=== PATIENT | female | born 1945 | race Caucasian/White ===

== ENCOUNTER → 2016-07-10 | Outpatient (CLI) | payer MEDICARE, BC ==
--- NOTE | 2016-07-10 17:56 | RADRPT ---
PROCEDURE: XR Knees. CLINICAL INDICATION: Bilateral knee pain. TECHNIQUE: Total of eight views. Weightbearing frontal, oblique, and lateral views of the both kn ees. Patellar views of both knees. COMPARISON: No prior study is available for comparison. FINDINGS: There is no fracture or dislocation. The soft tissues are normal. There are degenerative changes with osteophytes arising from all 3 joint compartment margins bilater ally. There is bilateral medial joint compartment narrowing, subarticular sclerosis, and mild defor mity. There is no lytic or blastic lesion. There is no radiopaque foreign body. IMPRESSION: 1. Moderate to severe degenerative changes of both knees. 2. No acute abnormality. RPTAT: QQ .Raza Gomes MD, MD Date Time Electronically viewed and signed by .Raza Gomes MD, MD on 07/10/2016 17:56 .R/
== END | disposition home or self-care (01) ==
LOC: HKI 11:16
PROVIDERS: ATTEND Orthopaedic Surgery
DX: M25.561 Pain in right knee (principal); M25.562 Pain in left knee; M17.0 Bilateral primary osteoarthritis of knee
CPT/HCPCS: 73564; G0463

== ENCOUNTER → 2016-08-12 | Outpatient (CLI) | payer MEDICARE, BC ==
--- NOTE | 2016-08-12 15:21 | RADRPT ---
PROCEDURE: Limited x-ray of both lower extremities. CLINICAL INDICATION: Bilateral leg pain. TECHNIQUE: Single frontal view of both lower extremities was obtained from the hips to the calves. COMPARISON: None. FINDINGS: The hips are not well seen due to overlying soft tissues. There is no gross fracture or dislocation . There are degenerative changes of both knees with bilateral medial joint compartment narrowing and o steophytes. IMPRESSION: 1. Moderate degenerative changes of both knees. RPTAT: QQ .Raza Gomes MD, MD Date Time Electronically viewed and signed by .Raza Gomes MD, MD on 08/12/2016 15:20 .R/
== END | disposition home or self-care (01) ==
LOC: HKI 10:24
PROVIDERS: ATTEND Orthopaedic Surgery
DX: M25.561 Pain in right knee (principal); M25.562 Pain in left knee; M17.0 Bilateral primary osteoarthritis of knee
CPT/HCPCS: 77073; G0463

== ENCOUNTER 2016-08-20 06:20 | Inpatient (IN) | payer MEDICARE, BC ==
[2016-08-20] VITALS (29 sets, daily range): BP systolic 100–152; BP diastolic 53–85; PULSE 62–75; RESP 16–29; Ht 162.6 cm; Wt 95.8 kg
[~2016-08-20] VITALS: Ht 162.6 cm; Wt 95.8 kg
[~2016-08-20 06:20] MED LIST: BUPIVACAINE LIPOSOME/PF 266 MG/20 ML VIAL INFIL ONE; CEFAZOLIN 2GM/50 ML (PMX) 50 ML X1 BEFORE INCISION IVPB ONE; CELECOXIB 400 MG PO X1 DOSE PO ONE; LACTATED RINGER'S 1,000 ML IV SCH; PAIN COCKTAIL-CEFUROXIME IRR ONE; PREGABALIN 300 MG PO X1 PO ONE; SOD CHLORIDE 0.9% IV ONE; TRANEXAMIC ACID IV ONE; oxyCODONE (CR) 10 MG TAB [oxyCONTIN] X1 DOSE PO ONE; traMADOL 50 MG TAB X 1 DOSE PO ONE
[2016-08-20] MEDS ORDERED: EXPAREL NOTE (BUPIVICAINE LIPOSOMAL) XX SCH (09:30)
[2016-08-20] MEDS ORDERED: MULT-371 PO (09:34)
[2016-08-20] MEDS ORDERED: FLUT16SP17 NASAL (09:35)
[2016-08-20] MEDS ORDERED: ALBU8.5H3 INH (09:37)
[2016-08-20] MEDS ORDERED: OMEP10CA4 PO (09:37)
[2016-08-20] MEDS ORDERED: PRAV40TA76 PO (09:37)
[2016-08-20] MEDS ORDERED: NIT4 SL (09:39)
[2016-08-20] MEDS ORDERED: LORA0.5T PO (09:40)
[2016-08-20] MEDS ORDERED: BUPR300T36 PO (09:41)
[2016-08-20] MEDS ORDERED: LEVO50TA71 PO (09:42)
[2016-08-20] MEDS ORDERED: ESCI20TA PO (09:42)
[2016-08-20] MEDS ORDERED: CHLO25TA13 PO (09:44)
[2016-08-20] MEDS ORDERED: HYDR-906 PO (09:44)
[2016-08-20] MEDS ORDERED: LIDO700A6 TP (09:46)
[2016-08-20] MEDS ORDERED: VANCOMYCIN 1 GM INJ ONE (10:55)
[2016-08-20] MEDS ORDERED: POLYMYXIN B 500000 UNIT INJ ONE (10:55)
[2016-08-20] MEDS ORDERED: METOCLOPRAMIDE 10 MG INJ ONE (11:10)
[2016-08-20] MEDS ORDERED: MIDAZOLAM 1 MG/ML 2 ML INJ ONE (11:10)
[2016-08-20] MEDS ORDERED: PROPOFOL 100 ML ONE (11:10)
[2016-08-20] MEDS ORDERED: FENTAnyl 50 MCG/ML VIAL ONE (11:10)
--- NOTE | 2016-08-20 11:13 | HPN ---
Date/Time of Note Date/Time of Note DATE: 08/20/16 TIME: 11:12 Interval H&P Admission Note Pt. seen H&P reviewed: No system changes No change from H&P by Dr. Aguilar Prescott on 08/13/16 ADITYA COLBERT MD August 20, 2016 11:12
[2016-08-20] MEDS ORDERED: EPINEPHrine 0.1 MG/ML SYG ONE (11:22)
[2016-08-20] MEDS ORDERED: ETOMIDATE 20 MG INJ ONE (11:25)
[2016-08-20] MEDS ORDERED: CEFAZOLIN 1 GM INJ ONE (11:26)
[2016-08-20] MEDS ORDERED: DEXAMETHASONE 4 MG/ML 1 ML INJ ONE ×2 (11:26)
[2016-08-20] MEDS ORDERED: MEPERIDINE 25 MG INJ IV PRN (12:00)
[2016-08-20] MEDS ORDERED: HYDROmorphONE (0.2 MG/ML) 10ML SYG IV PRN ×3 (12:00)
[2016-08-20] MEDS ORDERED: ONDANSETRON 4 MG INJ IV PRN ×2 (12:00→14:00)
[2016-08-20] MEDS ORDERED: DIPHENHYDRAMINE 50 MG INJ IV PRN (12:00)
[2016-08-20] MEDS ORDERED: METOCLOPRAMIDE 10 MG INJ IV PRN (12:00)
[2016-08-20] MEDS ORDERED: BACITRACIN 50000 UNITS INJ IRR ONE (12:07)
[2016-08-20] MEDS: TRANEXAMIC ACID 950 MG in SOD CHLORIDE 0.9% 100 ML IVPB ONE ×3 (12:47)
--- NOTE | 2016-08-20 13:37 | OPR ---
Date/Time of Note Date/Time of Note DATE: 08/20/16 TIME: 13:35 Operative Report Free Text/Dictation Dictation # [id number] Procedure Date: August 20, 2016 Preoperative Diagnosis Right Knee OA Postoperative Diagnosis Same Operation Performed Right TKA Surgeon: ADITYA COLBERT MD doctor assistant: FAM ORTA PA-C Anesthesia: general Anesthesiologist: LUZMARIA RINCON MD Tourniquet Time: 58 minutes Estimated Blood Loss: 10 - 50 ml's Specimens Bone and soft tissue Tubes/Drains Hemovac x 1 Complications: None Pt Condition Post Procedure: stable Disposition: PACU ADITYA COLBERT MD August 20, 2016 13:37
--- NOTE | 2016-08-20 13:45 | PN ---
Date/Time of Note Date/Time of Note DATE: 08/20/16 TIME: 13:43 Assessment/Plan Lines/Catheters IV Catheter Type (from Nrsg): Peripheral IV Assessment/Plan Assessment/Plan Stable in PACU, s/p right TKA -continue abx -pain meds prn -ASA/SCDs for DVT prophylaxis -OOB with PT -check AM labs -monitor drain -d/c garay in AM XR of the right knee is pending at this time Subjective 24 Hr Interval Summary Stable in PACU. Moving all extremities. Denies pain. Exam/Review of Systems Vital Signs Vitals Vital Signs Date Time Temp Pulse Resp B/P Pulse Ox O2 Delivery O2 Flow Rate FiO2 08/20/16 09:42 97.6 67 18 115/66 97 Room Air Intake and Output 08/19/16 08/19/16 08/20/16 15:00 23:00 07:00 Intake Total 109.5 ml Balance 109.5 ml Exam Free Text/Dictation Hemovac: minimal Dressing dry Incision clean, dry, and intact without redness or drainage Thigh soft 5/5 Quadriceps, Tibialis Anterior, EHL, Gastroc, Soleus, Peroneals Normal sensation Palpable DT/PT, CR <2 sec No distal edema FAM ORTA PA-C August 20, 2016 13:45
--- NOTE | 2016-08-20 13:52 | OPR ---
DATE OF OPERATION: 08/20/2016 PREOPERATIVE DIAGNOSIS: Right knee osteoarthritis. POSTOPERATIVE DIAGNOSIS: Right knee osteoarthritis. OPERATION PERFORMED: Right total knee arthroplasty. SURGEON: Aditya Rodriguez MD VALVE LINER RUBBER: RHINA Robles COMPONENTS USED: DePuy Attune size 5 femoral component, size 5 tibial base plate, 5 mm polyethylene insert, 38 patellar button. ANESTHESIA: Spinal plus general endotracheal intubation, plus periarticular injection. ANESTHESIOLOGIST: Dr. Gallagher TOURNIQUET TIME: 58 minutes. ESTIMATED BLOOD LOSS: 50 mL INTRAVENOUS FLUIDS: 1700 mL of crystalloid SPECIMENS: Bone and soft tissue. DRAINS: Hemovac x1. COMPLICATIONS: None. DISPOSITION: The patient tolerated the procedure well and was taken to the recovery room in stable condition. INDICATIONS: The patient is 70-year-old woman who has had progressive worsening pain in the right knee with radiographic evidence of severe osteoarthritis. She has failed nonsurgical means of treatment to control her pain, including activity modifications, pain medications, intra-articular injections and ambulatory assist devices. Despite these measures, she has had worsening pain and I felt she would benefit from a total knee arthroplasty. I felt the patient would benefit from a total knee arthroplasty. The risks, benefits, and alternatives of the procedure were explained in detail to the patient. I explained the risks of the surgery to include but not be limited to, bleeding and possible need for blood transfusion; infection; pain; stiffness; neurovascular injury with possible numbness, weakness, and/or paralysis anywhere from the knee down to the toes; fracture; instability; dislocation; wear and/or loosening of the prosthesis and possible need for future revision; blood clots; pulmonary embolism; and anesthetic complications such as heart attack, stroke, GI bleed, pneumonia, and/or . Ample time was allowed for the patient to ask questions, all of which were addressed and answered. The patient understood the risks involved and wished to proceed. Informed consent was signed prior to the procedure. PROCEDURE: The patient's right knee was initialed with a marking pen in the preoperative area to identify the correct operative site. The patient was brought to the operating room and transferred from the [facility] to the operating table where a spinal anesthetic was administered. The patient was then anesthetized and intubated. A German catheter was placed. A timeout was performed to confirm that the right leg was the correct operative site. The patient was given 2 g of Ancef within one hour prior to the procedure. A tourniquet was placed on the operative proximal thigh. The operative knee and lower extremity were prepped and draped in the usual sterile fashion. The operative lower extremity was elevated and exsanguinated with an Esmarch tourniquet. The proximal thigh tourniquet was inflated to 300 mmHg. The knee was flexed. A midline incision was made and carried down through the subcutaneous tissue and fat with sharp dissection. Limited medial and lateral flaps were raised. A median parapatellar arthrotomy approach was performed. Synovial fluid was normal in color and consistency. The patella was everted and the knee flexed. There were severe tricompartmental osteoarthritic changes noted. A medial release was performed at the joint line to the midcoronal plane. The ACL and PCL and remnants of the menisci were excised. The OrthAlign navigation device was then pinned into place on the distal femur and set to 0 degrees of varus/valgus and 3 degrees of flexion. The distal cutting block was pinned into place and the oscillating saw was used to make the cut. The tibia was subluxed anteriorly. The tibial OrthAlign navigation device was then pinned into place such that the proximal portion of the guide was centered over the junction of the medial and middle third of the tibial tubercle with the proximal probe placed at the posterior aspect of the ACL footprint. The guide was then set to 0 degrees varus/valgus and 3 degrees of posterior slope. The cutting block was then pinned into place and the oscillating saw was used to make the cut. The tibia was sized. The extension gap was checked and accommodated a 5 mm spacer block with the knee in full extension. There was no varus or valgus instability. At this point, the femur was sized with the posterior referencing guide. Two holes were drilled in 3 degrees of external rotation. The two holes were in line with the transepicondylar axis, perpendicular to Jaja's line, and in line with the tibial cutoff jig brought up with the knee flexed 90 degrees and tensed with 2 lamina spreaders, suggesting the femoral rotation was correct. The four-in-one cutting block was pinned into place. The anterior and posterior cuts and chamfer cuts were made with the oscillating saw. The flexion gap was checked and accommodated the 5 mm spacer block at 90 degrees. There was no varus or valgus instability, suggesting the flexion and extension gaps were now equal. The central box was cut out on the femur. The tibia was drilled and punched in proper rotation. Trial components were placed into position with a trial insert. The patella was cut from 24 mm down to 15 mm and sized. Three holes were drilled and the trial button placed in position. With all the trials now in place, the knee was taken through range of motion and came to full extension as evidenced by the fact that with the foot on my abdomen and axial loading, there was no tendency for the knee to flex. The knee was able to be flexed to 125 degrees with good patellar tracking with no lateral tilt or subluxation. At this point, I was satisfied with the overall range of motion, stability, and patellar tracking. The trials were removed. The real components were opened. Two bags of cement were mixed, one with and one without premixed antibiotic. The knee was irrigated with antibiotic saline and sucked dry. Once the cement was in a doughy stage, the real components were cemented into place. The knee was held in full extension, and the patellar component was held with a patellar clamp. All excess cement was removed with curettes. As the cement was hardening, the synovial/capsular layer was infiltrated with a mixture of 150 mg of 0.5% Bupivacaine, 8 mg of Duramorph, 300 mcg of epinephrine, 30 mg of Toradol, 100 mcg of clonidine, 750 mg of cefuroxime and 86 mL of normal saline, followed by an injection of 266 mg of liposomal Bupivacaine. A Hemovac drain was placed in the deep portion of the wound and brought out the anterolateral thigh. Once the cement was completely hardened, the trial liner was removed, and the real insert was opened. The tourniquet was let down, and there was good hemostasis. The knee was then irrigated with a mixture of betadine/saline and then antibiotic saline with pulsatile lavage. The real insert was impacted into the tibia and reduced onto to the femur. The arthrotomy was closed with a few interrupted #1 Ethibond in a figure-of- eight fashion, and then closed in a watertight fashion with a running #2 Stratafix suture. Knee flexion was checked against gravity and came to 125 degrees. The subcutaneous layer was irrigated and closed with 2-0 Stratafix, and then 3-0 Vicryl and then rodney on the skin. The wound was covered with an occlusive dressing, and secured with cast padding and a bias dressing. The drain was secured with 3-0 nylon. The sponge and needle counts were correct at the end of the case. The patient was then awakened, extubated, and taken to the recovery room in stable condition. Dictated By: ADITYA MÁRQUEZ/JORGITO Conf#: [id number] DID#: [id number] MTDD
[2016-08-20 13:59] LABS: HEMATOCRIT 39.1 % (37.0-47.0); HEMOGLOBIN 13.1 g/dl (12.0-16.0)
[2016-08-20] MEDS ORDERED: BISACODYL 10 MG SUPP PR PRN (14:00)
[2016-08-20] MEDS ORDERED: DIPHENHYDRAMINE 25 MG CAP PO PRN (14:00)
[2016-08-20] MEDS ORDERED: MAGNESIUM HYDROXIDE 30ML CUP PO PRN (14:00)
[2016-08-20] MEDS ORDERED: NA PHOSPHATE/BIPHOS 133 ML ENEMA PR PRN (14:00)
[2016-08-20] MEDS ORDERED: NACL 0.9% 3 ML SYG IV SCH (14:00)
[2016-08-20] MEDS ORDERED: ALBUTEROL HFA 8 GM INHALER INH PRN (14:00)
[2016-08-20] MEDS ORDERED: CEFAZOLIN 2 GM/50 ML (PMX) 50 ML IVPB SCH (14:00)
[2016-08-20] MEDS ORDERED: ASPIRIN (EC) 325 MG TAB PO ONE (14:00)
--- NOTE | 2016-08-20 14:27 | RADRPT ---
PROCEDURE: Right knee radiographs. CLINICAL INDICATION: Right knee pain. Postop. TECHNIQUE: Two views. Frontal and lateral. COMPARISON: 08/19/2016. FINDINGS: There is no fracture or dislocation. Anterior skin rodney and surgical drain are noted. There is gas in the soft tissues from the recen t surgery. There is a total right knee arthroplasty which appears satisfactory. There is no lytic or blastic lesion. There is no joint effusion. IMPRESSION: 1. Satisfactory postoperative appearance of the right knee. RPTAT: QQ .Raza Gomes MD, MD Date Time Electronically viewed and signed by .Raza Gomes MD, MD on 08/20/2016 14:26 .R/
[2016-08-20] MEDS: LACTATED RINGER'S 1,000 ML IV SCH ×2 (14:28→22:15)
[2016-08-20 14:30] LABS: CREATININE 0.74 mg/dl (0.44-1.00); POTASSIUM 4.6 mmol/L (3.5-5.1)
[2016-08-20] MEDS ORDERED: BACITRACIN 50000 UNITS INJ ONE (15:01)
[2016-08-20] MEDS: HYDROmorphONE 1 MG/ML SYG IV PRN (16:07)
[2016-08-20] MEDS ORDERED: TRANEXAMIC ACID 960 MG in SOD CHLORIDE 0.9% 100 ML IVPB ONE ×2 (17:00→20:00)
[2016-08-20] MEDS ORDERED: PANTOPRAZOLE (EC) 40 MG TAB PO SCH (18:00)
[2016-08-20] MEDS: traMADol 50 MG TAB PO SCH (18:00)
[2016-08-20] MEDS: HYDROCODONE/APAP (5/325) TAB PO PRN (18:44)
[2016-08-20] MEDS: DOCUSATE SODIUM 100 MG CAP PO SCH (20:45)
[2016-08-20] MEDS: PREGABALIN 50 MG CAP PO SCH (20:45)
[2016-08-20] MEDS: ATORVASTATIN 10 MG TAB PO SCH (20:45)
[2016-08-20] MEDS: CEFAZOLIN 2 GM/50 ML (PMX) 50 ML IVPB SCH (22:12)
[2016-08-21] MEDS: HYDROCODONE/APAP (5/325) TAB PO PRN ×5 (02:35→22:11)
[2016-08-21 05:17] LABS: HEMATOCRIT 35.2 % (37.0-47.0); HEMOGLOBIN 11.8 g/dl (12.0-16.0)
[2016-08-21 05:21] LABS: POTASSIUM 3.6 mmol/L (3.5-5.1)
[2016-08-21 05:24] LABS: CALCIUM 8.5 mg/dl (8.4-10.2); CREATININE 0.61 mg/dl (0.44-1.00)
[2016-08-21] MEDS: PANTOPRAZOLE (EC) 40 MG TAB PO SCH (06:27)
[2016-08-21] MEDS: traMADol 50 MG TAB PO SCH ×5 (06:27→23:48)
[2016-08-21] MEDS: LEVOTHYROXINE 50 MCG TAB PO SCH (06:27)
[2016-08-21] MEDS: CEFAZOLIN 2 GM/50 ML (PMX) 50 ML IVPB SCH ×2 (06:27→14:18)
[2016-08-21 06:38] LABS: ADD UMIC YES; URINE BILIRUBIN (Dip) NEGATIVE (NEGATIVE); URINE BLOOD (Dip) TRACE (NEGATIVE); URINE COLOR LT. YELLOW (YELLOW); URINE GLUCOSE (Dip) NEGATIVE (NEGATIVE); URINE KETONES (Dip) NEGATIVE (NEGATIVE); URINE LEUKOCYTE ESTERASE (Dip) NEGATIVE (NEGATIVE); URINE NITRITE (Dip) NEGATIVE (NEGATIVE); URINE TOTAL PROTEIN (Dip) NEGATIVE (NEGATIVE); URINE UROBILINOGEN (Dip) 0.2 E.U./dL (0.1-1.0)
[2016-08-21] MEDS: LACTATED RINGER'S 1,000 ML IV SCH ×4 (06:43→22:25)
[2016-08-21 07:00] VITALS: BP 116/57; RESP 18
[2016-08-21 07:02] LABS: URINE RBCS 0-2 /HPF (0)
--- NOTE | 2016-08-21 07:05 | CONS ---
DATE OF ADMISSION: 08/20/2016 DATE OF CONSULTATION: 08/20/2016 TYPE OF CONSULTATION: Postoperative medical consultation. Thank you very much for allowing me to evaluate this 70-year-old female who just underwent right tot al knee replacement. HISTORICAL EVENTS: As you well know, this patient has had progressive disabling pain involving her right knee, and for this elected to proceed with surgery. In recovery, she is comfortable without c ough, wheezing, shortness of breath, nausea, vomiting, abdominal or chest pain. PAST MEDICAL HISTORY: Includes: 1. Depression and anxiety. 2. Hyperlipidemia. 3. Hypertension. 4. Hypothyroidism. 5. History of prediabetes. 6. History of a partial colectomy. PERSONAL HISTORY: Social drinker, former smoker, , homemaker. FAMILY HISTORY: Positive for alcoholism and lung cancer. MEDICATIONS: 1. Multivitamins. 2. Fluticasone spray one inhalation b.i.d. as needed. 3. ProAir 2 puffs q.i.d. as needed. 4. Omeprazole 20. 5. Pravastatin 40 mg per day. 6. Lorazepam 0.5 b.i.d. p.r.n. 7. Levothyroxine 50 mcg per day. ALLERGIES: NIACIN. PHYSICAL EXAMINATION: GENERAL: [place] female in no acute distress. VITAL SIGNS: BP 118/78, respirations were 18. She was afebrile. EYES: Extraocular muscles were full. NOSE, MOUTH, AND THROAT: Normal. NECK: Supple. There was no jugular venous distention, thyroid enlargement or adenopathy. Carotids 2+, no bruits. LUNGS: Clear. HEART: Rhythm regular. ABDOMEN: Nontender. Liver and spleen not palpable. EXTREMITIES: No edema. NEUROLOGIC: No lateralizing motor weakness. IMPRESSION: 1. Stable postop right knee. 2. History of hypertension. Blood pressure will be monitored throughout and preop meds resumed. 3. Hyperlipidemia. Statin will be continued. 4. Will follow daily for signs and symptoms of thromboembolic disease. Dictated By: YAN العلي/JORGITO Conf#: [id number] DID#: [id number]
--- NOTE | 2016-08-21 08:12 | CONS ---
Date/Time of Note Date/Time of Note DATE: 08/21/16 TIME: 08:10 Assessment/Plan Assessment/Plan Additional Assessment/Plan 1. Doing well post op right knee replacement 2. HBP, well controlled 3. Labs reviewed Consultation Date/Type/Reason Admit Date/Time August 20, 2016 at 08:44 Initial Consult Date Detailed Summary Respiratory: No cough, No shortness of breath Cardiovascular: No chest pain Gastrointestinal: no complaints Genitourinary: other (garay just removed) Musculoskeletal: bone/joint pain (mild right knee pain) Exam/Review of Systems Vital Signs Vitals Vital Signs Date Time Temp Pulse Resp B/P Pulse Ox O2 Delivery O2 Flow Rate FiO2 08/21/16 07:00 98.2 83 18 116/57 96 08/20/16 20:10 Nasal Cannula 2.0 Intake and Output 08/20/16 08/20/16 08/21/16 14:59 22:59 06:59 Intake Total 2109.5 ml 1313.6 ml 1622 ml Output Total 195 ml 100 ml 1200 ml Balance 1914.5 ml 1213.6 ml 422 ml Exam Neck: No jvd Respiratory: clear to auscultation Cardiovascular: regular rate and rhythm Gastrointestinal: soft Extremities: No edema (and no calf tend) Results Result Diagram: 08/21/16 0443 08/21/16 0443 Results 24 hrs Laboratory Tests Test 08/20/16 13:51 08/21/16 04:06 08/21/16 04:43 Hemoglobin 13.1 11.8 L Hematocrit 39.1 35.2 L Sodium Level 137 136 Potassium Level 4.6 3.6 Chloride Level 102 101 Carbon Dioxide Level 27 26 Anion Gap 13 13 Blood Urea Nitrogen 18 15 Creatinine 0.74 0.61 Glucose Level 138 124 Calcium Level 9.0 8.5 Urine Color LT. YELLOW Urine Clarity CLEAR Urine pH 6.0 Urine Specific [place] 1.010 Urine Ketones NEGATIVE Urine Nitrite NEGATIVE Urine Bilirubin NEGATIVE Urine Urobilinogen 0.2 E.U./dL Urine Leukocyte Esterase NEGATIVE Urine Microscopic RBC 0-2 Urine Microscopic WBC 0-2 Urine Hemoglobin TRACE Urine Glucose NEGATIVE Urine Total Protein NEGATIVE Medications Medications Current Medications Albuterol (Ventolin Hfa) 2 puff Q6H PRN INH WHEEZING AND SOB; Start 08/20/16 at 14:00 Bupropion HCl (Wellbutrin Xl) 300 mg DAILY PO ; Start 08/21/16 at 09:00 Chlorthalidone (Hygroton) 25 mg DAILY PO ; Start 08/21/16 at 09:00 Escitalopram Oxalate (Lexapro) 20 mg DAILY PO ; Start 08/21/16 at 09:00 Atorvastatin Calcium 10 mg 10 mg DAILY@21 PO Last administered on 08/20/16 20: 45; Admin Dose 10 MG; Start 08/20/16 at 21:00 Lactated Ringer's (Lr) 1,000 ml @ 125 mls/hr Q8H IV Last administered on 06:43; Admin Dose 125 MLS/HR; Start 08/20/16 at 13:36 Celecoxib (Celebrex) 200 mg DAILY PO ; Start 08/21/16 at 09:00 Tramadol HCl (Ultram) 50 mg Q6 PO Last administered on 08/21/16 06:27; Admin Dose 50 MG; Start 08/20/16 at 18:00; Stop 08/23/16 at 17:59 Acetaminophen/ Hydrocodone Bitart ([place] (5/325)) 1 tab Q4H PRN PO PAIN LEVEL 1 -3 Last administered on 08/21/16 02:35; Admin Dose 1 TAB; Start 08/20/16 at 14: 00 Acetaminophen/ Hydrocodone Bitart ([place] (5/325)) 2 tab Q4H PRN PO PAIN LEVEL 4 -7; Start 08/20/16 at 14:00 Hydromorphone HCl (Dilaudid) 1 mg Q3H PRN IV PAIN LEVEL 8-10 Last administered on 08/20/16 16:07; Admin Dose 1 MG; Start 08/20/16 at 14:00 Ondansetron HCl (Zofran Inj) 4 mg Q6H PRN IV NAUSEA AND/OR VOMITING; Start 08/20 at 14:00 Bisacodyl (Dulcolax Supp) 10 mg Q12H PRN [place] CONSTIPATION; Start 08/20/16 at 14: 00 Magnesium Hydroxide (Milk Of Mag) 30 ml BID PRN PO CONSTIPATION; Start 08/20/16 at 14:00 Sodium Biphosphate/ Sodium Phosphate (Fleet Enema) 133 ml DAILY PRN [place] CONSTIPATION; Start 08/20/16 at 14:00 Docusate Sodium (Colace) 100 mg BID PO Last administered on 08/20/16 20:45; Admin Dose 100 MG; Start 08/20/16 at 21:00 Diphenhydramine HCl (Benadryl) 25 mg Q6H PRN PO PRURITUS; Start 08/20/16 at 14: 00 Aspirin (Ecotrin) 325 mg BID PO ; Start 08/21/16 at 09:00 Pregabalin (Lyrica) 50 mg BID PO Last administered on 08/20/16 20:45; Admin Dose 50 MG; Start 08/20/16 at 21:00 Pantoprazole 40 mg 40 mg DAILY@06 PO Last administered on 08/21/16 06:27; Admin Dose 40 MG; Start 08/21/16 at 06:00 Cefazolin Sodium/ Dextrose (Ancef 2 Gm/50 ml (Pmx)) 50 ml @ 100 mls/hr Q8 IVPB Last administered on 08/21/16 06:27; Admin Dose 100 MLS/HR; Start 08/20/16 at 22:00; Stop 08/21/16 at 14:29 YAN MEDEIROS MD August 21, 2016 08:12
[2016-08-21] MEDS ORDERED: POTASSIUM CHLORIDE (SR) 10 MEQ TAB PO ONE (08:30)
--- NOTE | 2016-08-21 08:44 | PN ---
Date/Time of Note Date/Time of Note DATE: 08/21/16 TIME: 08:43 Assessment/Plan Lines/Catheters IV Catheter Type (from Nrsg): Peripheral IV German in Place (from Nrsg): No Assessment/Plan Assessment/Plan Stable POD #1, s/p right TKA -d/c abx -pain meds prn -ASA/SCDs -OOB with PT -drain removed -check AM labs -d/c planning. Will plan to go home upon discharge Subjective 24 Hr Interval Summary No acute overnight events. Denies any significant pain. Did not start PT yesterday. VSS, afebrile. Will plan to go home upon discharge. Exam/Review of Systems Vital Signs Vitals Vital Signs Date Time Temp Pulse Resp B/P Pulse Ox O2 Delivery O2 Flow Rate FiO2 08/21/16 07:00 98.2 83 18 116/57 96 08/20/16 20:10 Nasal Cannula 2.0 Intake and Output 08/20/16 08/20/16 08/21/16 15:00 23:00 07:00 Intake Total 2109.5 ml 1313.6 ml 1622 ml Output Total 195 ml 100 ml 1200 ml Balance 1914.5 ml 1213.6 ml 422 ml Exam Free Text/Dictation Hemovac: 200cc Dressing dry Incision clean, dry, and intact without redness or drainage Thigh soft 5/5 Quadriceps, Tibialis Anterior, EHL, Gastroc, Soleus, Peroneals Normal sensation Palpable DT/PT, CR <2 sec No distal edema Results Result Diagram: 08/21/163 08/21/16 044 FAM ORTA PA-C August 21, 2016 08:44
[2016-08-21] MEDS: CELECOXIB 200 MG CAP PO SCH (09:33)
[2016-08-21] MEDS: ESCITALOPRAM 10 MG TAB PO SCH (09:34)
[2016-08-21] MEDS: ASPIRIN (EC) 325 MG TAB PO SCH ×2 (09:34→20:15)
[2016-08-21] MEDS: PREGABALIN 50 MG CAP PO SCH ×2 (09:34→20:16)
[2016-08-21] MEDS: DOCUSATE SODIUM 100 MG CAP PO SCH ×2 (09:34→20:16)
[2016-08-21] MEDS: CHLORTHALIDONE 25 MG TAB PO SCH (09:35)
[2016-08-21] MEDS: BUPROPION (XL) 150 MG TAB PO SCH (09:36)
--- NOTE | 2016-08-21 14:12 | PN ---
Date/Time of Note Date/Time of Note DATE: 08/21/16 TIME: 14:10 Assessment/Plan VTE Prophylaxis VTE Prophylaxis Intervention: ambulation Lines/Catheters IV Catheter Type (from Nrsg): Peripheral IV Urinary Cath still in place: No Subjective 24 Hr Interval Summary Free Text/Dictation Anesthesia note: A 70 year female s/p TKA under GA and spinal POD # 1is doing well. pain is controlled, no n/v, headache, itching, back pain. v/s stable. Exam/Review of Systems Vital Signs Vitals Vital Signs Date Time Temp Pulse Resp B/P Pulse Ox O2 Delivery O2 Flow Rate FiO2 08/21/16 07:00 98.2 83 18 116/57 96 08/20/16 20:10 Nasal Cannula 2.0 Intake and Output 08/20/16 08/20/16 08/21/16 15:00 23:00 07:00 Intake Total 2109.5 ml 1313.6 ml 1622 ml Output Total 195 ml 100 ml 1200 ml Balance 1914.5 ml 1213.6 ml 422 ml Results Result Diagram: 08/21/16 0443 08/21/16 0443 Results 24 hrs Laboratory Tests Test 08/21/16 04:06 08/21/16 04:43 Urine Color LT. YELLOW Urine Clarity CLEAR Urine pH 6.0 Urine Specific [place] 1.010 Urine Ketones NEGATIVE Urine Nitrite NEGATIVE Urine Bilirubin NEGATIVE Urine Urobilinogen 0.2 E.U./dL Urine Leukocyte Esterase NEGATIVE Urine Microscopic RBC 0-2 Urine Microscopic WBC 0-2 Urine Hemoglobin TRACE Urine Glucose NEGATIVE Urine Total Protein NEGATIVE Hemoglobin 11.8 L Hematocrit 35.2 L Sodium Level 136 Potassium Level 3.6 Chloride Level 101 Carbon Dioxide Level 26 Anion Gap 13 Blood Urea Nitrogen 15 Creatinine 0.61 Glucose Level 124 Calcium Level 8.5 Medications Medications Current Medications Albuterol (Ventolin Hfa) 2 puff Q6H PRN INH WHEEZING AND SOB; Start 08/20/16 at 14:00 Bupropion HCl (Wellbutrin Xl) 300 mg DAILY PO Last administered on 08/21/16 09 :36; Admin Dose 300 MG; Start 08/21/16 at 09:00 Chlorthalidone (Hygroton) 25 mg DAILY PO Last administered on 08/21/16 09:35; Admin Dose 25 MG; Start 08/21/16 at 09:00 Escitalopram Oxalate (Lexapro) 20 mg DAILY PO Last administered on 08/21/16 09 :34; Admin Dose 20 MG; Start 08/21/16 at 09:00 Atorvastatin Calcium 10 mg 10 mg DAILY@21 PO Last administered on 08/20/16 20: 45; Admin Dose 10 MG; Start 08/20/16 at 21:00 Lactated Ringer's (Lr) 1,000 ml @ 125 mls/hr Q8H IV Last administered on 06:43; Admin Dose 125 MLS/HR; Start 08/20/16 at 13:36 Celecoxib (Celebrex) 200 mg DAILY PO Last administered on 08/21/16 09:33; Admin Dose 200 MG; Start 08/21/16 at 09:00 Tramadol HCl (Ultram) 50 mg Q6 PO Last administered on 08/21/16 12:41; Admin Dose 50 MG; Start 08/20/16 at 18:00; Stop 08/23/16 at 17:59 Acetaminophen/ Hydrocodone Bitart ([place] (5/325)) 1 tab Q4H PRN PO PAIN LEVEL 1 -3 Last administered on 08/21/16 09:38; Admin Dose 1 TAB; Start 08/20/16 at 14: 00 Acetaminophen/ Hydrocodone Bitart ([place] (5/325)) 2 tab Q4H PRN PO PAIN LEVEL 4 -7; Start 08/20/16 at 14:00 Hydromorphone HCl (Dilaudid) 1 mg Q3H PRN IV PAIN LEVEL 8-10 Last administered on 08/20/16 16:07; Admin Dose 1 MG; Start 08/20/16 at 14:00 Ondansetron HCl (Zofran Inj) 4 mg Q6H PRN IV NAUSEA AND/OR VOMITING; Start 08/20 at 14:00 Bisacodyl (Dulcolax Supp) 10 mg Q12H PRN [place] CONSTIPATION; Start 08/20/16 at 14: 00 Magnesium Hydroxide (Milk Of Mag) 30 ml BID PRN PO CONSTIPATION; Start 08/20/16 at 14:00 Sodium Biphosphate/ Sodium Phosphate (Fleet Enema) 133 ml DAILY PRN [place] CONSTIPATION; Start 08/20/16 at 14:00 Docusate Sodium (Colace) 100 mg BID PO Last administered on 08/21/16 09:34; Admin Dose 100 MG; Start 08/20/16 at 21:00 Diphenhydramine HCl (Benadryl) 25 mg Q6H PRN PO PRURITUS; Start 08/20/16 at 14: 00 Aspirin (Ecotrin) 325 mg BID PO Last administered on 08/21/16 09:34; Admin Dose 325 MG; Start 08/21/16 at 09:00 Pregabalin (Lyrica) 50 mg BID PO Last administered on 08/21/16 09:34; Admin Dose 50 MG; Start 08/20/16 at 21:00 Pantoprazole 40 mg 40 mg DAILY@06 PO Last administered on 08/21/16 06:27; Admin Dose 40 MG; Start 08/21/16 at 06:00 Cefazolin Sodium/ Dextrose (Ancef 2 Gm/50 ml (Pmx)) 50 ml @ 100 mls/hr Q8 IVPB Last administered on 08/21/16 06:27; Admin Dose 100 MLS/HR; Start 08/20/16 at 22:00; Stop 08/21/16 at 14:29 Lorazepam (Ativan) 0.5 mg HS PO ; Start 08/21/16 at 21:00 LUZMARIA RINCON MD August 21, 2016 14:12
[2016-08-21 19:00] VITALS: BP 106/55; RESP 19
[2016-08-21] MEDS: ATORVASTATIN 10 MG TAB PO SCH (20:16)
[2016-08-21] MEDS: LORAZEPAM 0.5 MG TAB PO SCH (20:16)
[2016-08-22] MEDS: HYDROCODONE/APAP (5/325) TAB PO PRN ×5 (04:30→22:40)
[2016-08-22 04:51] LABS: HEMATOCRIT 31.6 % (37.0-47.0); HEMOGLOBIN 10.5 g/dl (12.0-16.0)
[2016-08-22] MEDS: traMADol 50 MG TAB PO SCH ×4 (05:16→23:43)
[2016-08-22] MEDS: PANTOPRAZOLE (EC) 40 MG TAB PO SCH (05:16)
[2016-08-22 05:21] LABS: POTASSIUM 3.9 mmol/L (3.5-5.1)
[2016-08-22 05:23] LABS: CREATININE 0.78 mg/dl (0.44-1.00); MAGNESIUM 1.9 mg/dl (1.7-2.5); PHOSPHORUS 3.2 mg/dl (2.5-4.9)
[2016-08-22 05:24] LABS: CALCIUM 8.5 mg/dl (8.4-10.2)
[2016-08-22] MEDS: LEVOTHYROXINE 50 MCG TAB PO SCH (06:27)
[2016-08-22] MEDS: HYDROmorphONE 1 MG/ML SYG IV PRN (06:35)
--- NOTE | 2016-08-22 07:55 | CONS ---
Date/Time of Note Date/Time of Note DATE: 08/22/16 TIME: 07:54 Assessment/Plan Assessment/Plan Additional Assessment/Plan 1. Doing well post op right knee replacement 2. HBP, controlled 3. Anemia, stable Consultation Date/Type/Reason Admit Date/Time August 20, 2016 at 08:44 Detailed Summary Respiratory: No cough, No shortness of breath Cardiovascular: No chest pain Gastrointestinal: no complaints Genitourinary: no complaints Musculoskeletal: bone/joint pain (mod right knee pain) Exam/Review of Systems Vital Signs Vitals Vital Signs Date Time Temp Pulse Resp B/P Pulse Ox O2 Delivery O2 Flow Rate FiO2 08/21/16 19:00 98.0 69 19 106/55 94 08/20/16 20:10 Nasal Cannula 2.0 Intake and Output 08/21/16 08/21/16 08/22/16 15:00 23:00 07:00 Intake Total 50 ml 2400 ml 1670 ml Output Total 600 ml Balance 50 ml 1800 ml 1670 ml Exam Neck: No jvd Respiratory: clear to auscultation Cardiovascular: regular rate and rhythm Gastrointestinal: soft Extremities: No edema (and no calf tend bilat) Results Result Diagram: 08/22/16 0419 08/22/16 0419 Results 24 hrs Laboratory Tests Test 08/22/16 04:19 Hemoglobin 10.5 L Hematocrit 31.6 L Sodium Level 138 Potassium Level 3.9 Chloride Level 99 Carbon Dioxide Level 30 Anion Gap 13 Blood Urea Nitrogen 15 Creatinine 0.78 Glucose Level 96 Calcium Level 8.5 Phosphorus Level 3.2 Magnesium Level 1.9 Medications Medications Current Medications Albuterol (Ventolin Hfa) 2 puff Q6H PRN INH WHEEZING AND SOB; Start 08/20/16 at 14:00 Bupropion HCl (Wellbutrin Xl) 300 mg DAILY PO Last administered on 08/21/16 09 :36; Admin Dose 300 MG; Start 08/21/16 at 09:00 Chlorthalidone (Hygroton) 25 mg DAILY PO Last administered on 08/21/16 09:35; Admin Dose 25 MG; Start 08/21/16 at 09:00 Escitalopram Oxalate (Lexapro) 20 mg DAILY PO Last administered on 08/21/16 09 :34; Admin Dose 20 MG; Start 08/21/16 at 09:00 Atorvastatin Calcium 10 mg 10 mg DAILY@21 PO Last administered on 08/21/16 20: 16; Admin Dose 10 MG; Start 08/20/16 at 21:00 Lactated Ringer's (Lr) 1,000 ml @ 100 mls/hr Q10H IV Last administered on 08/21 20:17; Admin Dose 100 MLS/HR; Start 08/20/16 at 13:36 Celecoxib (Celebrex) 200 mg DAILY PO Last administered on 08/21/16 09:33; Admin Dose 200 MG; Start 08/21/16 at 09:00 Tramadol HCl (Ultram) 50 mg Q6 PO Last administered on 08/22/16 05:16; Admin Dose 50 MG; Start 08/20/16 at 18:00; Stop 08/23/16 at 17:59 Acetaminophen/ Hydrocodone Bitart ([place] (5/325)) 1 tab Q4H PRN PO PAIN LEVEL 1 -3 Last administered on 08/21/16 16:13; Admin Dose 1 TAB; Start 08/20/16 at 14: 00 Acetaminophen/ Hydrocodone Bitart ([place] (5/325)) 2 tab Q4H PRN PO PAIN LEVEL 4 -7 Last administered on 08/22/16 04:30; Admin Dose 2 TAB; Start 08/20/16 at 14: 00 Hydromorphone HCl (Dilaudid) 1 mg Q3H PRN IV PAIN LEVEL 8-10 Last administered on 08/22/16 06:35; Admin Dose 1 MG; Start 08/20/16 at 14:00 Ondansetron HCl (Zofran Inj) 4 mg Q6H PRN IV NAUSEA AND/OR VOMITING; Start 08/20 at 14:00 Bisacodyl (Dulcolax Supp) 10 mg Q12H PRN [place] CONSTIPATION; Start 08/20/16 at 14: 00 Magnesium Hydroxide (Milk Of Mag) 30 ml BID PRN PO CONSTIPATION; Start 08/20/16 at 14:00 Sodium Biphosphate/ Sodium Phosphate (Fleet Enema) 133 ml DAILY PRN [place] CONSTIPATION; Start 08/20/16 at 14:00 Docusate Sodium (Colace) 100 mg BID PO Last administered on 08/21/16 20:16; Admin Dose 100 MG; Start 08/20/16 at 21:00 Diphenhydramine HCl (Benadryl) 25 mg Q6H PRN PO PRURITUS; Start 08/20/16 at 14: 00 Aspirin (Ecotrin) 325 mg BID PO Last administered on 08/21/16 20:15; Admin Dose 325 MG; Start 08/21/16 at 09:00 Pregabalin (Lyrica) 50 mg BID PO Last administered on 08/21/16 20:16; Admin Dose 50 MG; Start 08/20/16 at 21:00 Pantoprazole (Protonix Tab) 40 mg DAILY@06 PO Last administered on 08/22/16 05 :16; Admin Dose 40 MG; Start 08/21/16 at 06:00 Lorazepam (Ativan) 0.5 mg HS PO Last administered on 08/21/16 20:16; Admin Dose 0.5 MG; Start 08/21/16 at 21:00 YAN MEDEIROS MD August 22, 2016 07:55
[2016-08-22 08:07] VITALS: BP 111/56; RESP 19
[2016-08-22] MEDS: LACTATED RINGER'S 1,000 ML IV SCH ×2 (08:25→18:00)
[2016-08-22] MEDS: PREGABALIN 50 MG CAP PO SCH ×2 (09:05→20:29)
[2016-08-22] MEDS: CELECOXIB 200 MG CAP PO SCH (09:05)
[2016-08-22] MEDS: ASPIRIN (EC) 325 MG TAB PO SCH ×2 (09:05→20:29)
[2016-08-22] MEDS: DOCUSATE SODIUM 100 MG CAP PO SCH ×2 (09:05→20:29)
[2016-08-22] MEDS: CHLORTHALIDONE 25 MG TAB PO SCH (09:06)
[2016-08-22] MEDS: ESCITALOPRAM 10 MG TAB PO SCH (09:07)
[2016-08-22] MEDS: BUPROPION (XL) 150 MG TAB PO SCH (09:07)
--- NOTE | 2016-08-22 09:44 | PDOCDIS ---
Discharge Instructions DIAGNOSIS Discharge Diagnosis: s/p right TKA CONDITION Patient Condition: Good HOME CARE INSTRUCTIONS: Diet Instructions: Regular ACTIVITY: Activity Restrictions: Slowly Increase Activity Rest between Activity Avoid heavy lifting Do not operate Machinery Do not operate Power Tool Avoid Heavy Housework Keep Limb Elevated Bathing Restrictions: Shower FOLLOW UP/APPOINTMENTS Appointments follow up on 08/30/16 OTHER ORDERS: Other Orders: S/P TKA Physical Therapy: Three times per week at home x 2 weeks Daily in Rehab/SNF WB STATUS: WBAT 1. Strengthening exercises for both upper and un-operated lower extremities. 2. Gait training with front wheeled walker 3. Active range of motion exercises to operative knee. 4. When not working on knee range of motion exercises, distal towel roll under operative ankle/distal calf to promote full extension. 5. DO NOT PUT ANYTHING BEHIND OPERATIVE KNEE!!! 6. Quadriceps and hamstring strengthening. 7. May switch to cane in contra lateral hand 6 weeks after surgery. 8. Physical Therapy can open case if nursing is not available. 9. Use Ice Machine as instructed from date of surgery while at rest 3X/day. 10. Patient requires mobile SCDs to reduce risk of developing DVT following TKA. Patient will use the mobile SCDs for 30 days postoperatively. Bathing assistance by home health aide twice weekly if Medicare patient. Occupational Therapy: Evaluation for assistive devices and ADL training. Wound Care: Keep incision dry & covered with Tegaderm until first visit with Dr. Rodriguez Anticoagulation Orders: Enteric Coated Aspirin 325 mg po bid x 6 weeks from date of surgery Follow-up:Call for an appointment with Dr. Rodriguez in 1 week after discharged from hospital at DME Orders: ANU, 3-in-1 Commode, Polar ice machine, Mobile SCDs FAM ORTA PA-C August 22, 2016 09:44
[2016-08-22] MEDS ORDERED: ASPI325T32 PO (09:46)
[2016-08-22] MEDS ORDERED: HYDR-905 PO (09:46)
[2016-08-22] MEDS ORDERED: PREG50CA PO (09:46)
[2016-08-22] MEDS ORDERED: TRAM50TA2 PO (09:46)
--- NOTE | 2016-08-22 15:55 | PN ---
Date/Time of Note Date/Time of Note DATE: 08/22/16 TIME: 15:52 Assessment/Plan Lines/Catheters IV Catheter Type (from Nrsg): Peripheral IV German in Place (from Nrsg): No Assessment/Plan Assessment/Plan POD #2, s/p right TKA -pain meds as needed -ASA/SCDs for DVT prophylaxis -dressing changed -OOB with PT -check AM labs -will likely discharge home tomrrow Subjective 24 Hr Interval Summary No acute overnight events. Having slightly more pain today. Progessing well with PT. VSS, afebrile. Will plan to discharge home tomorrow. Exam/Review of Systems Vital Signs Vitals Vital Signs Date Time Temp Pulse Resp B/P Pulse Ox O2 Delivery O2 Flow Rate FiO2 08/22/16 08:07 98.0 61 19 111/56 98 08/20/16 20:10 Nasal Cannula 2.0 Intake and Output 08/21/16 08/21/16 08/22/16 15:00 23:00 07:00 Intake Total 50 ml 2400 ml 1670 ml Output Total 600 ml Balance 50 ml 1800 ml 1670 ml Exam Free Text/Dictation Dressing dry Incision clean, dry, and intact without redness or drainage Thigh soft / Quadriceps, Tibialis Anterior, EHL, Gastroc, Soleus, Peroneals Normal sensation Palpable DT/PT, CR <2 sec No distal edema Results Result Diagram: 08/22/16 0419 08/22/16 0419 FAM ORTA PA-C August 22, 2016 15:55
[2016-08-22 19:43] VITALS: BP 139/61; RESP 20
[2016-08-22] MEDS: LORAZEPAM 0.5 MG TAB PO SCH (20:29)
[2016-08-22] MEDS: ATORVASTATIN 10 MG TAB PO SCH (20:29)
[2016-08-23] MEDS: HYDROmorphONE 1 MG/ML SYG IV PRN (02:13)
[2016-08-23] MEDS: LACTATED RINGER'S 1,000 ML IV SCH (04:25)
[2016-08-23 05:07] LABS: HEMATOCRIT 32.7 % (37.0-47.0); HEMOGLOBIN 10.7 g/dl (12.0-16.0)
[2016-08-23 05:34] LABS: CALCIUM 8.5 mg/dl (8.4-10.2); CREATININE 0.72 mg/dl (0.44-1.00); POTASSIUM 4.2 mmol/L (3.5-5.1)
[2016-08-23] MEDS: PANTOPRAZOLE (EC) 40 MG TAB PO SCH (06:05)
[2016-08-23] MEDS: traMADol 50 MG TAB PO SCH ×2 (06:06→12:12)
[2016-08-23] MEDS: LEVOTHYROXINE 50 MCG TAB PO SCH (06:06)
--- NOTE | 2016-08-23 08:01 | PN ---
Date/Time of Note Date/Time of Note DATE: 08/23/16 TIME: 08:00 Assessment/Plan Lines/Catheters IV Catheter Type (from Nrsg): Peripheral IV German in Place (from Nrsg): No Assessment/Plan Assessment/Plan POD #3, s/p right TKA -pain meds as needed -ASA/SCDs for DVT prophylaxis -OOB with PT -dressing changed -d/c home today -follow up in the office in 1 week Subjective 24 Hr Interval Summary No acute overnight events. Pain improved since yesterday. Progressing nicely with PT. VSS, afebrile. Stable for discharge home today. Exam/Review of Systems Vital Signs Vitals Vital Signs Date Time Temp Pulse Resp B/P Pulse Ox O2 Delivery O2 Flow Rate FiO2 08/22/16 19:43 98.8 75 20 139/61 98 08/20/16 20:10 Nasal Cannula 2.0 Intake and Output 08/22/16 08/22/16 08/23/16 15:00 23:00 07:00 Intake Total 600 ml 700 ml Balance 600 ml 700 ml Exam Free Text/Dictation Dressing dry Incision clean, dry, and intact without redness or drainage 08/16 Quadriceps, Tibialis Anterior, EHL, Gastroc, Soleus, Peroneals Normal sensation Palpable DT/PT, CR <2 sec No distal edema Results Result Diagram: 08/23/16 0435 08/23/16 0435 FAM ORTA PA-C August 23, 2016 08:01
[2016-08-23 08:02] VITALS: BP 122/59; RESP 19
[2016-08-23] MEDS: CELECOXIB 200 MG CAP PO SCH (08:27)
[2016-08-23] MEDS: ASPIRIN (EC) 325 MG TAB PO SCH (08:27)
[2016-08-23] MEDS: DOCUSATE SODIUM 100 MG CAP PO SCH (08:27)
[2016-08-23] MEDS: BUPROPION (XL) 150 MG TAB PO SCH (08:27)
[2016-08-23] MEDS: CHLORTHALIDONE 25 MG TAB PO SCH (08:27)
[2016-08-23] MEDS: ESCITALOPRAM 10 MG TAB PO SCH (08:27)
[2016-08-23] MEDS: HYDROCODONE/APAP (5/325) TAB PO PRN ×2 (08:28→12:46)
--- NOTE | 2016-08-23 08:57 | CONS ---
Date/Time of Note Date/Time of Note DATE: 08/23/16 TIME: 08:56 Assessment/Plan Assessment/Plan Additional Assessment/Plan 1. Doing well post op right knee replacement 2. HBP, controlled 3. Anemia, stable 4. She can be dc if ok with ortho and PT Consultation Date/Type/Reason Admit Date/Time August 20, 2016 at 08:44 Detailed Summary Respiratory: No cough Cardiovascular: edema, No chest pain Gastrointestinal: no complaints Genitourinary: no complaints Exam/Review of Systems Vital Signs Vitals Vital Signs Date Time Temp Pulse Resp B/P Pulse Ox O2 Delivery O2 Flow Rate FiO2 08/23/16 08:02 98.0 71 19 122/59 98 08/20/16 20:10 Nasal Cannula 2.0 Intake and Output 08/22/16 08/22/16 08/23/16 15:00 23:00 07:00 Intake Total 600 ml 700 ml Balance 600 ml 700 ml Exam Neck: No jvd Respiratory: clear to auscultation Cardiovascular: regular rate and rhythm Extremities: No edema (and no calf tend) Results Result Diagram: 08/23/16 0435 08/23/16 0435 Results 24 hrs Laboratory Tests Test 08/23/16 04:35 Hemoglobin 10.7 L Hematocrit 32.7 L Sodium Level 134 L Potassium Level 4.2 Chloride Level 99 Carbon Dioxide Level 31 Anion Gap 8 Blood Urea Nitrogen 15 Creatinine 0.72 Glucose Level 107 Calcium Level 8.5 Medications Medications Current Medications Albuterol (Ventolin Hfa) 2 puff Q6H PRN INH WHEEZING AND SOB; Start 08/20/16 at 14:00 Bupropion HCl (Wellbutrin Xl) 300 mg DAILY PO Last administered on 08/23/16 08 :27; Admin Dose 300 MG; Start 08/21/16 at 09:00 Chlorthalidone (Hygroton) 25 mg DAILY PO Last administered on 08/23/16 08:27; Admin Dose 25 MG; Start 08/21/16 at 09:00 Escitalopram Oxalate (Lexapro) 20 mg DAILY PO Last administered on 08/23/16 08 :27; Admin Dose 20 MG; Start 08/21/16 at 09:00 Atorvastatin Calcium 10 mg 10 mg DAILY@21 PO Last administered on 08/22/16 20: 29; Admin Dose 10 MG; Start 08/20/16 at 21:00 Lactated Ringer's (Lr) 1,000 ml @ 100 mls/hr Q10H IV Last administered on 08/21 20:17; Admin Dose 100 MLS/HR; Start 08/20/16 at 13:36 Celecoxib (Celebrex) 200 mg DAILY PO Last administered on 08/23/16 08:27; Admin Dose 200 MG; Start 08/21/16 at 09:00 Tramadol HCl (Ultram) 50 mg Q6 PO Last administered on 08/23/16 06:06; Admin Dose 50 MG; Start 08/20/16 at 18:00; Stop 08/23/16 at 17:59 Acetaminophen/ Hydrocodone Bitart ([place] (5/325)) 1 tab Q4H PRN PO PAIN LEVEL 1 -3 Last administered on 08/21/16 16:13; Admin Dose 1 TAB; Start 08/20/16 at 14: 00 Acetaminophen/ Hydrocodone Bitart ([place] (5/325)) 2 tab Q4H PRN PO PAIN LEVEL 4 -7 Last administered on 08/23/16 08:28; Admin Dose 2 TAB; Start 08/20/16 at 14: 00 Hydromorphone HCl (Dilaudid) 1 mg Q3H PRN IV PAIN LEVEL 8-10 Last administered on 08/23/16 02:13; Admin Dose 1 MG; Start 08/20/16 at 14:00 Ondansetron HCl (Zofran Inj) 4 mg Q6H PRN IV NAUSEA AND/OR VOMITING; Start 08/20 at 14:00 Bisacodyl (Dulcolax Supp) 10 mg Q12H PRN [place] CONSTIPATION; Start 08/20/16 at 14: 00 Magnesium Hydroxide (Milk Of Mag) 30 ml BID PRN PO CONSTIPATION; Start 08/20/16 at 14:00 Sodium Biphosphate/ Sodium Phosphate (Fleet Enema) 133 ml DAILY PRN [place] CONSTIPATION; Start 08/20/16 at 14:00 Docusate Sodium (Colace) 100 mg BID PO Last administered on 08/23/16 08:27; Admin Dose 100 MG; Start 08/20/16 at 21:00 Diphenhydramine HCl (Benadryl) 25 mg Q6H PRN PO PRURITUS; Start 08/20/16 at 14: 00 Aspirin (Ecotrin) 325 mg BID PO Last administered on 08/23/16 08:27; Admin Dose 325 MG; Start 08/21/16 at 09:00 Pregabalin (Lyrica) 50 mg BID PO Last administered on 08/22/16 20:29; Admin Dose 50 MG; Start 08/20/16 at 21:00 Pantoprazole (Protonix Tab) 40 mg DAILY@06 PO Last administered on 08/23/16 06 :05; Admin Dose 40 MG; Start 08/21/16 at 06:00 Lorazepam (Ativan) 0.5 mg HS PO Last administered on 08/22/16 20:29; Admin Dose 0.5 MG; Start 08/21/16 at 21:00 YAN MEDEIROS MD August 23, 2016 08:57
[2016-08-23] MEDS: PREGABALIN 50 MG CAP PO SCH (09:00)
--- NOTE | 2016-08-23 10:06 | DS ---
DATE OF ADMISSION: 08/20/2016 DATE OF DISCHARGE: 08/23/2016 CONDITION ON DISCHARGE: Stable. ADMITTING DIAGNOSIS: Right knee osteoarthritis. DISCHARGE DIAGNOSIS: Status post right total knee arthroplasty. PROCEDURE PERFORMED: Right total knee arthroplasty. HOSPITAL COURSE: This is a 70-year-old female who was seen in the clinic complaining of right knee pain. X-rays demonstrate advanced osteoarthritis of the right knee and it was thought she would benefit from a right total knee arthroplasty. On 08/20/2016 the patient was admitted and taken to the operating room where she underwent a right total knee arthroplasty. There were no intraoperative complications. The patient tolerated the procedure well. She was taken to the recovery room in stable condition. Pain was well controlled with oral pain medication. She was started on aspirin and SCDs for DVT prophylaxis. She remained hemodynamically stable and neurovascularly intact throughout her hospital stay. She began physical therapy on postoperative day 1 and continued to make good progress. She was ultimately deemed stable for discharge home on postoperative day #3. Prior to discharge, the incision was inspected and noted to be clean, dry and intact. Dressing changes were done prior to patient going home. LABORATORY ANALYSIS: Hemoglobin of 10.7, hematocrit 32.7. Chemistry panel was within normal limits. DISCHARGE MEDICATIONS: 1. [place] 7.5/325 mg. 2. Lyrica 50 mg. 3. Tramadol 50 mg. 3. Aspirin 325 mg. 4. In addition, the patient should resume all her normal home medications. DISCHARGE INSTRUCTIONS: She will be discharged home in stable condition. She is to resume a normal diet. She is weightbearing as tolerated on the surgical lower extremity. She will begin physical therapy with home health. She will be discharged home on the medications noted above and is to resume all of her normal home medications. The patient is to call the office or go to the emergency room for any concerns including increased redness, swelling, drainage or fever or any concerns regarding the operation or site of incision. FOLLOWUP: The patient to follow up in the office on 08/30/2016. Dictated By: FAM LANTIGUA for ADITYA FINNEY/JORGITO Conf#: [id number] DID#: [id number] PEYTON
== END 2016-08-23 14:22 | disposition home health service (06) | DRG 470 ==
LOC: REC 08:44 → MS1 15:35
PROVIDERS: ADMIT Orthopaedic Surgery; ATTEND Orthopaedic Surgery
PROC: 0SRC0J9 Replacement of Right Knee Joint with Synthetic Substitute, Cemented, Open Approach (ICD-10-PCS; principal; 2016-08-20 10:00)
DX: M17.11 Unilateral primary osteoarthritis, right knee (principal); I10 Essential (primary) hypertension; E78.5 Hyperlipidemia, unspecified; E03.9 Hypothyroidism, unspecified; F32.9 Major depressive disorder, single episode, unspecified; F41.9 Anxiety disorder, unspecified; D64.9 Anemia, unspecified; R73.03 Prediabetes; Z90.49 Acquired absence of other specified parts of digestive tract; Z87.891 Personal history of nicotine dependence
CPT/HCPCS: 73560; 80048; 81001; 81003; 83735; 84100; 85014; 85018; 86850; 86900; 86901; 86920; 87081; 87086; 88304; 88311; 97110; 97116; 97162; 97530; C1776; C9290; J0171; J0690; J0697; J0735; J1100; J1170; J1885; J2250; J2274; J2765; J3010; J3370; J7120

== ENCOUNTER → 2016-08-30 | Outpatient (CLI) | payer MEDICARE, BC ==
[~2016-08-30] MED LIST changes: +ALBU8.5H3 INH; +ASPI325T32 PO; -BUPIVACAINE LIPOSOME/PF 266 MG/20 ML VIAL INFIL ONE; +BUPR300T36 PO; -CEFAZOLIN 2GM/50 ML (PMX) 50 ML X1 BEFORE INCISION IVPB ONE; -CELECOXIB 400 MG PO X1 DOSE PO ONE; +CHLO25TA13 PO; +ESCI20TA PO; +FLUT16SP17 NASAL; +HYDR-905 PO; -LACTATED RINGER'S 1,000 ML IV SCH; +LEVO50TA71 PO; +LIDO700A6 TP; +LORA0.5T PO; +MULT-371 PO; +NIT4 SL; +OMEP10CA4 PO; -PAIN COCKTAIL-CEFUROXIME IRR ONE; +PRAV40TA76 PO; +PREG50CA PO; -PREGABALIN 300 MG PO X1 PO ONE; -SOD CHLORIDE 0.9% IV ONE; +TRAM50TA2 PO; -TRANEXAMIC ACID IV ONE; -oxyCODONE (CR) 10 MG TAB [oxyCONTIN] X1 DOSE PO ONE; -traMADOL 50 MG TAB X 1 DOSE PO ONE
--- NOTE | 2016-08-30 12:20 | RADRPT ---
PROCEDURE: XR right knee. CLINICAL INDICATION: Knee pain. TECHNIQUE: AP and lateral weightbearing views are available for review. COMPARISON: 08/20/2016 FINDINGS: There are anterior skin rodney. There is a total knee replacement. There is no evidence of loosening of the prosthesis. There is no evidence of hardware failure. The osseous structures are normal in mineralization, architecture and alignment No acute fracture or dislocation is seen.No osseous lesions are identified. The soft tiss ues are unremarkable . there is a small suprapatellar joint effusion. IMPRESSION: Unremarkable total knee replacement. Small suprapatellar joint effusion RPTAT: HGDB .Francisco Carlos MD, MD Date Time Electronically viewed and signed by .Francisco Carlos MD, on 08/30/2016 12:20 .B/
--- NOTE | 2016-08-30 12:40 | HKNOTE ---
DATE OF SERVICE: 08/30/2016 INTERVAL HISTORY: The patient presents today for her first postoperative evaluation. She is now 10 days status post right total knee arthroplasty. She is doing well overall. She is having some mild pain, but denies any significant discomfort. She is doing physical therapy with home health. She is also taking aspirin twice daily as recommended for DVT prophylaxis. She denies any fevers or chills. She presents today for her first postoperative evaluation. PHYSICAL EXAMINATION: Today, she is alert and oriented x4, and in no acute distress. She is ambulating with a front-wheeled walker; however, is able to ambulate without any assistive device. Exam of the knee demonstrates it to be clean, dry, and intact. The incision is well healing. There is no erythema or warmth noted. She does have some ecchymosis along the posterior aspect of the knee. Range of motion is 0 to 95 degrees. Her alignment does demonstrate some slight valgus. Compartments are otherwise soft. Homans sign is negative. She is neurovascularly intact distally. IMAGING: X-rays of the right knee were obtained today and reviewed by me. They demonstrate slight valgus, but adequate alignment, with no acute fractures or dislocation identified. ASSESSMENT: Ten days status post right total knee arthroplasty. PLAN: The ordney were removed today and Steri-Strips were applied. She is to continue aspirin twice daily for DVT prophylaxis. Additionally, she is to continue home health PT and transition to outpatient physical therapy program. We will see her back in 4 weeks for repeat evaluation. She is to call the office in the meantime if she has any concerns. Dictated By: FAM FINNEY/JORGITO Conf#: [id number] DID#: [id number] MTDD
== END | disposition home or self-care (01) ==
LOC: HKI 10:41
PROVIDERS: ATTEND Orthopaedic Surgery
DX: Z47.1 Aftercare following joint replacement surgery (principal); Z96.651 Presence of right artificial knee joint; Z79.82 Long term (current) use of aspirin

== ENCOUNTER → 2016-09-27 | Outpatient (CLI) | payer MEDICARE, BC | END | disposition home or self-care (01) | LOC: HKI 13:43 | PROVIDERS: ATTEND Orthopaedic Surgery | DX: Z47.1 Aftercare following joint replacement surgery (principal); M17.11 Unilateral primary osteoarthritis, right knee; Z96.651 Presence of right artificial knee joint ==

== ENCOUNTER → 2016-11-08 | Outpatient (CLI) | payer MEDICARE, BC ==
[~2016-11-08] MED LIST changes: +HYDR-906 PO
--- NOTE | 2016-11-08 15:30 | RADRPT ---
PROCEDURE: Right knee radiographs. CLINICAL INDICATION: Right knee pain. Postop. TECHNIQUE: Three views. Weight bearing. Frontal, lateral, and patellar view. COMPARISON: 08/30/2016. FINDINGS: There is no fracture or dislocation. Anterior skin rodney have been removed. There is a total right knee arthroplasty which appears satisfactory. There is no lytic or blastic lesion. There is no joint effusion. IMPRESSION: 1. Satisfactory postoperative appearance of the right knee. RPTAT: QQ .Raza Gomes MD, MD Date Time Electronically viewed and signed by .Raza Gomes MD, on 11/08/2016 15:29 .R/
--- NOTE | 2016-11-08 15:31 | RADRPT ---
PROCEDURE: Left knee radiographs. CLINICAL INDICATION: Left knee pain. TECHNIQUE: Four views. Weight bearing. Frontal, lateral, oblique, and patellar view. COMPARISON: 07/10/2016. FINDINGS: There is no fracture or dislocation. The soft tissues are normal. There are degenerative changes with osteophytes arising from all 3 joint compartment margins. There is medial joint compartment narrowing, subarticular sclerosis, and deformity, unchanged. There is no lytic or blastic lesion. There is no radiopaque foreign body. IMPRESSION: 1. Moderate to severe degenerative changes of the left knee. 2. No acute abnormality. RPTAT: QQ .Raza Gomes MD, MD Date Time Electronically viewed and signed by .Raza Gomes MD, MD on 11/08/2016 15:31 .R/
== END | disposition home or self-care (01) ==
LOC: HKI 13:15
PROVIDERS: ATTEND Orthopaedic Surgery
DX: M17.0 Bilateral primary osteoarthritis of knee (principal); Z47.1 Aftercare following joint replacement surgery; Z96.651 Presence of right artificial knee joint; E78.00 Pure hypercholesterolemia, unspecified; E66.9 Obesity, unspecified; F32.9 Major depressive disorder, single episode, unspecified; F41.9 Anxiety disorder, unspecified; Z85.038 Personal history of other malignant neoplasm of large intestine